=== PATIENT | female | born 1985 | race African-American/Black ===

== ENCOUNTER 2018-11-09 15:04 | Emergency (ER) | payer OTHER ==
[2018-11-09] MEDS ORDERED: NS 0.9% 1000 ML** 2,000 ML IV ONE (15:15)
--- OUTSIDE RECORDS SUMMARY | 2018-11-09 15:17 | XMS REPORT | Continuity of Care Document ---
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 Onset: 2016 Toxic diffuse goiter with no crisis Avi Diaz M.D. Onset: 07/26/2011 Goiter Avi Diaz M.D. Onset: 07/25/2011 Tachycardia Avi Diaz M.D. Onset: 07/25/2011 Benign essential hypertension Avi Diaz M.D. Onset: 07/25/2011 Family History Date Family Member(s) Observation Comments General Family members all A+W Mother Depression Social History Type Date Description Comments Sex Unknown Education Highest level of education completed is 12th grade Living Situation Patient lives alone Diet Diet is healthy and well balanced Sleep Reports difficulty falling asleep Pets There are no pets in the home Occupation [employer] Tobacco Use Start: Unknown Never Smoked Cigarettes ETOH Use Denies alcohol use Tobacco Use Start: Unknown Patient has never smoked Exercise Type/Frequency Walks daily Current Allergies, Adverse Reactions, Alerts Description No Known Drug Allergies Medications Active Medications SIG Qnty Indications Ordering Date Provider Sertraline HCL Take 1 To 2 Tablets 60tabs F43.21 Avi Diaz, 2016 25mg Every Morning For M.D. Tablets Anxiety And Depression Atenolol take 1 tablet by 30tabs I10 Avi Diaz, 11/03/2009 25mg Tablets mouth every day M.D. History Medications Methimazole 1 po tid Or as 60tabs Avi Jasmine 07/26/2011 - 10mg Tablets Directed Bipin Diaz 09/20/2013 Medrol Dosepak use as 1tabs 782.1 Krista Stein, 07/05/2010 - 4mg Tablets directed [facility] 11/12/2010 Note Due To Health Issues Agatah was 782.1 Krista Stein, 07/05/2010 - seen by me [facility] 11/12/2010 today and may not return to work until , 3\\\\11 Multi-Vitamin 1 po qd Unknown - Tablets 11/03/2009 Ortho Patch Unknown - 11/03/2009 Medroxyprogesterone 1 im q 3 months Unknown - Acetate 07/05/2010 150mg/ml Suspension Depo-Provera Contraceptive q 3 months Unknown - 09/20/2013 150mg/ml Suspension Medications Administered in Office Medication SIG Qnty Indications Ordering Provider Date Brief Emotional/Behav Assessment Avi Diaz M.D. 07/04/2016 W/ Scoring Doc Per Standard Inst Injection Vital Signs Date Vital Result Comment 11/09/2018 2:03pm BP Systolic 108 mmHg BP Diastolic 80 mmHg Heart Rate 82 /min Body Temperature 97.5 F Respiratory Rate 16 /min Height 60 inches 5'0" Weight 155.00 lb BMI (Body Mass Index) 30.3 kg/m2 06/04/2018 2:26pm BP Systolic 112 mmHg BP Diastolic 70 mmHg Heart Rate 76 /min Body Temperature 98.7 F Respiratory Rate 16 /min Height 60 inches 5'0" Weight 143.00 lb BMI (Body Mass Index) 27.9 kg/m2 03/31/2017 8:57am BP Systolic 116 mmHg BP Diastolic 84 mmHg Heart Rate 78 /min Body Temperature 98.6 F Respiratory Rate 16 /min Height 60 inches 5'0" Weight 136.00 lb BMI (Body Mass Index) 26.6 kg/m2 09/06/2016 9:27am BP Systolic 116 mmHg BP Diastolic 70 mmHg Heart Rate 72 /min Body Temperature 98.8 F Respiratory Rate 16 /min Height 60 inches 5'0" Weight 128.12 lb BMI (Body Mass Index) 25.0 kg/m2 07/25/2016 1:48pm BP Systolic 128 mmHg BP Diastolic 82 mmHg Heart Rate 76 /min Body Temperature 98.4 F Respiratory Rate 16 /min Height 60 inches 5'0" Weight 133.50 lb BMI (Body Mass Index) 26.1 kg/m2 07/04/2016 1:46pm BP Systolic 144 mmHg BP Diastolic 72 mmHg Heart Rate 84 /min Body Temperature 99.1 F Respiratory Rate 16 /min Weight 135.38 lb 01/01/2016 12:45pm BP Systolic 116 mmHg BP Diastolic 60 mmHg Heart Rate 66 /min Body Temperature 98.4 F Respiratory Rate 16 /min Weight 137.00 lb 06/30/2015 4:20pm BP Systolic 126 mmHg BP Diastolic 74 mmHg Heart Rate 84 /min Body Temperature 98.6 F Respiratory Rate 16 /min Weight 137.00 lb 12/16/2014 4:17pm BP Systolic 126 mmHg BP Diastolic 80 mmHg Heart Rate 72 /min Body Temperature 98.4 F Respiratory Rate 16 /min Weight 138.38 lb 06/02/2014 12:58pm BP Systolic 110 mmHg BP Diastolic 60 mmHg Heart Rate 74 /min Body Temperature 98.7 F Respiratory Rate 14 /min Height 60 inches 5'0" Weight 137.00 lb BMI (Body Mass Index) 26.8 kg/m2 12/02/2013 12:52pm BP Systolic 124 mmHg BP Diastolic 86 mmHg Heart Rate 64 /min Body Temperature 98.2 F Respiratory Rate 16 /min Height 60 inches 5'0" Weight 132.00 lb BMI (Body Mass Index) 25.8 kg/m2 09/20/2013 5:01pm BP Systolic 130 mmHg BP Diastolic 80 mmHg Heart Rate 68 /min Body Temperature 98.0 F Respiratory Rate 18 /min Height 60 inches 5'0" Weight 136.00 lb BMI (Body Mass Index) 26.6 kg/m2 07/29/2011 2:02pm BP Systolic 114 mmHg BP Diastolic 76 mmHg Heart Rate 90 /min Body Temperature 98.3 F Height 60 inches 5'0" Weight 125.00 lb BMI (Body Mass Index) 24.4 kg/m2 07/26/2011 2:06pm BP Systolic 132 mmHg BP Diastolic 82 mmHg Heart Rate 80 /min Respiratory Rate 14 /min Height 60 inches 5'0" Weight 127.00 lb BMI (Body Mass Index) 24.8 kg/m2 07/25/2011 3:34pm BP Systolic 158 mmHg BP Diastolic 90 mmHg Heart Rate 104 /min Height 60 inches 5'0" Weight 127.00 lb BMI (Body Mass Index) 24.8 kg/m2 11/12/2010 11:31am BP Systolic 110 mmHg BP Diastolic 74 mmHg Heart Rate 88 /min Body Temperature 99.0 F Height 60 inches 5'0" Weight 131.00 lb BMI (Body Mass Index) 25.6 kg/m2 07/05/2010 11:00am BP Systolic 100 mmHg BP Diastolic 70 mmHg Heart Rate 88 /min Body Temperature 99.0 F Height 60 inches 5'0" Weight 128.00 lb BMI (Body Mass Index) 25.0 kg/m2 04/26/2010 1:59pm BP Systolic 128 mmHg BP Diastolic 76 mmHg Heart Rate 78 /min Body Temperature 99.2 F Height 60 inches 5'0" Weight 127.00 lb BMI (Body Mass Index) 24.8 kg/m2 01/25/2010 2:07pm BP Systolic 124 mmHg BP Diastolic 80 mmHg Heart Rate 78 /min Body Temperature 99.5 F Height 60 inches 5'0" Weight 123.00 lb BMI (Body Mass Index) 24.0 kg/m2 11/24/2009 1:20pm BP Systolic 132 mmHg BP Diastolic 90 mmHg Heart Rate 84 /min Body Temperature 99.0 F Respiratory Rate 16 /min Height 60 inches 5'0" Weight 126.00 lb BMI (Body Mass Index) 24.6 kg/m2 11/03/2009 2:23pm BP Systolic 140 mmHg BP Diastolic 98 mmHg Heart Rate 106 /min Body Temperature 98.2 F Height 60 inches 5'0" Weight 122.00 lb BMI (Body Mass Index) 23.8 kg/m2 01/16/2009 9:35am BP Systolic 136 mmHg BP Diastolic 90 mmHg Heart Rate 80 /min Respiratory Rate 18 /min Height 60 inches 5'0" Weight 123.00 lb BMI (Body Mass Index) 24.0 kg/m2 Results Test Date Facility Test Result H/L Range Note Ua - Non Micro ([facility]) 11/09/2018 [facility] Appearance clear (607)- - Color yellow Glucose, Urine ([facility]ma/[facility]/CTX) >=1000 # provider aware Bilirubin negative Ketones trace # SP Grav 1.010 Blood negative PH 5.5 Protein negative Urobil 0.2 Nitrite negative Leukocytes (Fma/CMC/Centrex) negative Laboratory test 11/09/2018 [facility] Glucose >600 mg/dL High 70- 105 finding (607)- - Fingerstick (a) Laboratory test 06/04/2018 [facility](a) TSH 0.70 mIU/L 0.50-6.00 finding Free T4 0.93 ng/dL 0.75-1.54 Basic Metabolic Profile 06/04/2018 [facility](a) Sodium 137 mEq/L 134-149 Potassium 4.8 mEq/L 3.6-5.5 Chloride 109 mEq/L 94-112 Carbon Dioxide 24 mEq/L 21-32 Glucose 95 mg/dL 70-105 BUN 13 mg/dL 6-26 Creatinine 0.7 mg/dL 0.6-1.4 BUN/Creat Ratio 18.6 CALC 8.0-36.0 Calcium 9.2 mg/dL 8.6-10.2 GFR Non- >60 ml/min/1.73m^ >=60 GFR >60 ml/min/1.73m^ >=60 Laboratory test finding 03/31/2017 [facility]) TSH 1.07 mIU/L 0.50-6.00 Free T4 0.93 ng/dL 0.75-1.54 Comprehensive Metabolic 07/04/2016 [facility]) Sodium 139 mEq/L 134-149 Prof Potassium 4.4 mEq/L 3.6-5.5 Chloride 108 mEq/L 94-112 Carbon Dioxide 24 mEq/L 21-32 Glucose 120 mg/dL High 70-105 BUN 9 mg/dL 6-26 Creatinine 0.7 mg/dL 0.6-1.4 BUN/Creat Ratio 12.9 CALC 8.0-36.0 Calcium 9.3 mg/dL 8.6-10.2 Total Protein 7.7 g/dL 6.4-8.3 Albumin 4.7 g/dL 3.8-5.5 Globulin 3.0 g/dL 2.0-4.8 A/G Ratio 1.6 CALC 0.6-2.3 Alk. Phosphatase 48 U/L 30-110 Alt (SGPT) 11 U/L 7-35 Ast (Sgot) 14 U/L 5-34 Total Bilirubin 0.3 mg/dL 0.2-1.3 GFR Non- >60 ml/min/1.73m^ >=60 GFR >60 ml/min/1.73m^ >=60 Complete Blood Count 07/04/2016 [facility](a) WBC 4.0 x10^3/UL 3.6 -9.6 RBC 4.54 x10^6/UL 3.90-5.70 HGB 14.3 g/dL 12.1-17.2 HCT 42 % 36-50 MCV 92.0 fL 82.2-97.4 MCH 31.4 pg 27.6-33.3 MCHC 34.3 g/dL 33.0-35.5 RDW 13.0 % 11.6-13.7 PLT 295 x10^3/UL 150-400 MPV 7.0 fL Low 7.4-10.4 Gran # 2.2 x10^3/UL 1.5-7.2 Lymph# 1.6 x10^3/UL 0.7-4.9 [place]# 0.2 x10^3/UL 0.1-0.9 Gran % 55.1 % 42.2-75.2 Lymph % 39.6 % 20.5-51.1 [place]% 5.3 % 1.7-9.3 Laboratory test finding 07/04/2016 [facility](a) TSH 0.48 mIU/L Low 0.50-6.00 1 Free T4 1.12 ng/dL 0.75-1.54 Laboratory test finding 01/01/2016 [facility](fma) TSH 0.41 mIU/L Low 0.50-6.00 2 Free T4 0.99 ng/dL 0.75-1.54 Laboratory test 06/30/2015 [facility](a) Free T4 1.03 ng/dL 0.75- 1.54 finding TSH 0.39 mIU/L Low 0.50-6.00 3 Laboratory test 12/16/2014 [facility](a) Free T4 1.19 ng/dL 0.75- 1.54 finding TSH 0.41 mIU/L Low 0.50-6.00 4 Laboratory test 06/02/2014 Roejlio Lawson(a) Free T4 1.11 ng/dL 0.75- 1.54 finding TSH 0.92 mIU/L 0.50-6.00 Basic Metabolic Profile 06/02/2014 [facility](a) Sodium 134 mEq/L 134-149 Potassium 4.6 mEq/L 3.6-5.5 Chloride 101 mEq/L 94-112 Carbon Dioxide 25 mEq/L 21-32 Glucose 102 mg/dL 70-105 BUN 11 mg/dL 6-26 Creatinine 0.8 mg/dL 0.6-1.4 BUN/Creat Ratio 13.8 CALC 8.0-36.0 Calcium 9.6 mg/dL 8.6-10.2 Laboratory test finding 12/02/2013 [facility] Flora(a) TSH 0.50 mIU/L 0.50-6.00 Free T4 1.10 ng/dL 0.75-1.54 Free T3 2.53 pg/mL 2.00-4.90 Laboratory test finding 08/19/2011 [facility] Thyroxine Free 1.50 ng/dL High 0.61-1.24 T3 Total 2.46 NG/ML High 0.5-1.7 T3 Free 5.38 pg/mL 2.39-6.79 TSH 0.04 MIU/ML Low 0.34-5.60 Laboratory test finding 08/05/2011 [facility] Thyroxine Free 3.19 ng/dL High 0.61-1.24 T3 Total 3.94 NG/ML High 0.5-1.7 T3 Free 10.39 pg/mL High 2.39-6.79 TSH 0.03 MIU/ML Low 0.34-5.60 Thyroperoxidase Antibody 716.1 IU/mL High Less Than 9.0 Thyroid Stimulating Igg 5.1 Abnormal <=1.3 5 Basic Metabolic Profile 07/25/2011 [facility](a) BUN 17 mg/dL 6- 26 Calcium 9.7 mg/dL 8.6-10.2 Chloride 103 mEq/L 94-112 Creatinine 0.6 mg/dL 0.6-1.4 Carbon Dioxide 24 mEq/L 21-32 Glucose 122 mg/dL High 70-105 6 Sodium 139 mEq/L 134-149 Potassium 4.0 mEq/L 3.6-5.5 BUN/Creat Ratio 30.6 Calc 8.0-36.0 Laboratory test 07/25/2011 [facility]) Free T4 > 9.44 ng/dL High 0.75-1.54 finding TSH < 0.01 mIU/L Low 0.50-6.00 CBC Electronic ([facility]) 07/25/2011 [facility] WBC 5.7 3.6-9.6 (607)- - RBC 4.53 3.90-5.70 Hemoglobin (Fma/CMC/CTX) 12.5 g/dL 12.1 - 17.2 Hematocrit (Fma/CMC/CTX) 37.1 % 36.1 - 50.3 Platelets 279 10^3/ul 150-400 Lymph% 45.0 20.5-51.1 Mixed% 8.4 Neutrophils % 46.6 Mean Corpuscular Vol 81.9 Low 82.2-97.4 Mean Corpuscular Hemoglobin 27.6 27.6-33.3 Mean Corpuscular Hemo Concen 33.7 32.0-36.0 RDW 12.7 11.6-13.7 Mean Platelet Volume 11.0 6.5-11.0 Comprehensive Metabolic 11/03/2009 [facility]) Albumin 4.8 g/dL 3.8-5.5 Prof Alk. Phos. 59 U/L 30-110 Alt (SGPT) 33 U/L 7-35 Ast (Sgot) 20 U/L 5-34 BUN 11 mg/dL 6-26 Calcium 10.1 mg/dL 8.6-10.2 Chloride 101 mEq/L 94-112 Creatinine 0.7 mg/dL 0.6-1.4 Carbon Dioxide 23 mEq/L 21-32 Glucose 88 mg/dL 70-105 Sodium 140 mEq/L 134-149 Total Bilirubin 0.5 mg/dL 0.2-1.3 Total Protein 8.1 g/dL 6.3-8.1 Potassium 4.0 mEq/L 3.6-5.5 Globulin 3.3 g/dL 2.0-4.8 A/G Ratio 1.5 Calc 0.6-2.2 BUN/Creat Ratio 15.1 Calc 8.0-36.0 Laboratory test finding 11/03/2009 Rojel[facility] Lulu(a) TSH 1.23 mIU/L 0.50-6.00 Free T4 0.96 ng/dL 0.75-1.54 CBC ([facility]) 11/03/2009 [facility] WBC 5.5 3.6-9.6 (607)- - RBC 4.78 3.90-5.70 Hemoglobin (Fma/CMC/CTX) 14.7 g/dL 12.1 - 17.2 Hematocrit (Fma/CMC/CTX) 42.5 % 36.1 - 50.3 Mean Corpuscular Vol 88.9 82.2-97.4 Mean Corpuscular Hemaglobin 30.8 27.6-33.3 Mean Corpuscular Hemo Concen 34.6 33.0-36.0 Platelets 292 10^3/ul 150-400 Lymph% 32.1 20.5-51.1 Mixed% 6.7 Neutrophils % =61.2 RDW 13.9 High 11.6-13.7 Mean Platelet Volume 9.4 7.4-10.4 Laboratory test finding 01/16/2009 Rojelio Lawson(a) TSH 0.87 mIU/L 0.50-6.00 Free T4 1.27 ng/dL 0.75-1.54 Free T3 3.09 pg/mL 2.00-4.90 1 RESULTS VERIFIED BY REPEAT ANALYSIS 2 RESULTS VERIFIED BY REPEAT ANALYSIS 3 RESULTS VERIFIED BY REPEAT ANALYSIS 4 RESULTS VERIFIED BY REPEAT ANALYSIS 5 INFCE Result Units: TSI index Test Performed by: [facility] D[facility] of Lab Med [facility] Pathology [address] [place] [address] Bingo Usher: Chandler Holley III, M.D. 6 RESULT JOYCELYN'D Procedures Date Code Description Status 07/04/2016 54507 Brief Emotional/Behav Assessment W/ Scoring Doc Per Completed Standard Inst 07/25/2011 52595 Pulse Oximetry Completed 07/25/2011 86959 Electrocardiogram Complete Completed Encounters Type Date Location Provider Dx Diagnosis Office Visit 06/04/2018 Main Office Avi Diaz, I10 Essential (primary ) 2:20p M.D. hypertension F43.21 Adjustment disorder with depressed mood E05.00 Thyrotoxicosis w diffuse goiter w/o thyrotoxic crisis Office Visit 03/31/2017 9:00a Main Office Avi Diaz, I10 Essential ( primary) M.D. 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 with depressed mood I10 Essential (primary) hypertension Office Visit 07/25/2016 2:00p Main Office Avi Diaz, F43.21 Adjustment disorder M.D. 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 242.00 Goiter Toxic Diffuse W/O Thyrotoxic Crisis Or Storm Office Visit 06/02/2014 1:00p Main Office Avi Diaz, 401.1 Hypertension Benign M.D. 242.00 Goiter Toxic Diffuse W/O Thyrotoxic Crisis Or Storm Office Visit 12/02/2013 1:00p Main Office Avi Diaz, 242.00 Goiter Toxic M.D. Diffuse W/O Thyrotoxic Crisis Or Storm 401.1 Hypertension Benign Office Visit 09/20/2013 4:00p Main Office Krista Stein, 401.1 Hypertension Benign FIRE LOOKOUT Office Visit 05/23/2012 9:00a Main Office Yuri Hidalgo 401.1 Hypertension Benign Bipin Valverde Office Visit 07/29/2011 2:10p Main Office Avi Diaz, 242.00 Goiter Toxic M.D. Diffuse W/O Thyrotoxic Crisis Or Storm 401.1 Hypertension Benign 785.0 Tachycardia Unspec Office Visit 07/26/2011 2:10p Main Office Avi Diaz, 242.00 Goiter Toxic M.D. Diffuse W/O Thyrotoxic Crisis Or Storm 401.1 Hypertension Benign 785.0 Tachycardia Unspec Office Visit 07/25/2011 4:00p Main Office Avi Diaz, 401.1 Hypertension Benign M.D. 785.0 Tachycardia Unspec 240.9 Goiter Unspec Office Visit 11/12/2010 11:40a Main Office Avi Diaz, 401.1 Hypertension Benign M.D. Office Visit 07/05/2010 11:15a Main Office Krista Stein, 782.1 Rash & Other Nonspec FIRE LOOKOUT Skin Eruption Office Visit 04/26/2010 1:50p Main Office Avi Diaz, 401.1 Hypertension Benign M.D. Office Visit 01/25/2010 2:00p Main Office Avi Diaz, 401.1 Hypertension Benign M.D. 785.0 Tachycardia Unspec Office Visit 11/24/2009 1:20p Main Office Avi Diaz, 401.1 Hypertension Benign M.D. Office Visit 11/03/2009 2:10p Main Office Avi Diaz, 401.1 Hypertension Benign M.D. 785.0 Tachycardia Unspec Office Visit 01/16/2009 9:30a Main Office Krista Stein FIRE LOOKOUT 240.9 Goiter Unspec Plan of Treatment Future Appointment(s):12/03/2018 9:20 am - Avi Diaz M.D. at Main Rqzvel2111/09/2018 - Elizabeth Lindsay, NPR73.9 Hyperglycemia, unspecifiedComments :Please go to the ED right now for stabilization. Come back in 3 days for a recheck with an MD.R63.1 PolydipsiaAllComments:1. Patient has been queried about patient's goals/preferences and functional/lifestyle goals at relevant visits. If relevant, describe: Has been discussed, noted above2. Treatment goals as explainedto the patient: see above3. Are there barriers to meeting treatment goals? Yes If Yes, please describe: Barriers include possible insurance limits, disease process, and difficulty with lifestyle changes4. Self -Management goals as described to the patient: Yes, see above As always, we strongly encourage a healthy diet and making physical activity a part of your every day life. If you have questions about how or where to start, please contact the office.
[2018-11-09 15:55] LABS: ABS Basophils 0.1 10^3/ul (0-0.2); ABS Eosinophils 0.1 10^3/ul (0-0.6); ABS Monocytes 0.5 10^3/ul (0-0.8); ABS Neutrophils 5.2 10^3/ul (1.5-7.7); Eosinophil % 0.9 %; Hematocrit 44 % (35-47); Hemoglobin 14.7 g/dL (12.0-16.0); Lymphocyte % 25.8 %; Mean Corpuscular HGB Conc 34 g/dL (31-36); Mean Corpuscular Hemoglobin 29 pg (27-31); Mean Corpuscular Volume 87 fL (80-97); Nucleated Red Blood Cells % 0.1; Platelet Count 318 10^3/uL (150-450); Red Blood Count 5.06 10^6 /uL (3.70-4.87); Red Cell Distribution Width 14 % (10-15); White Blood Count 7.8 10^3/uL (3.5-10.8)
[2018-11-09 16:21] LABS: Albumin 4.7 g/dL (3.2-5.2); Albumin/Globulin Ratio 1.2 (1-3); C Reactive Protein 4.64 mg/L (<8.01); Calcium 10.6 mg/dL (8.6-10.3); EGFR African American 86.2 (>60); EGFR Non-African American 71.2 (>60); Globulin 3.9 g/dL (2-4); Magnesium 1.9 mg/dL (1.9-2.7); Potassium 4.6 mmol/L (3.5-5.0); Total Bilirubin 0.4 mg/dL (0.2-1.0); Total Protein 8.6 g/dL (6.4-8.9)
[2018-11-09] MEDS ORDERED: Insulin REGULAR(*) 1 UNITS UNIT IV PUSH ONE ×2 (16:37→18:04)
--- NOTE | 2018-11-09 16:43 | ED ---
HPI Diabetic - HPI Summary HPI Summary: A 33 y/o female accompanied by family presents to [facility] with a chief complaint of high blood glucose measured at 430 today. The patient reports new onset DM. She says for the past few days she has been thirsty and has an increased urinary frequency. She reports a Hx of hyperthyroid and HTN and a FHx of DM on her father's side. She also notes that she has been gaining weight. At triage she rated her pain as a 0/10 in severity. The patient denies any fevers, chills , CP or SOB. - History Of Current Complaint Chief Complaint: EDDiabeticProb Time Seen by Provider: 11/09/18 15:12 Hx Obtained From: Patient, Family/Dealer Support Technician Hx Last Menstrual Period: 03/01/16 Onset/Duration: Sudden Onset, Lasting Days, Still Present Timing: Constant Severity Initially: Mild Severity Currently: Mild Character: Alert Aggravating: Nothing Alleviating: Nothing Associated Signs & Symptoms: Negative - fevers, chills, CP or SOB - Allergies/Home Medications Allergies/Adverse Reactions: Allergies Allergy/AdvReac Type Severity Reaction Status Date / Time No Known Allergies Allergy Verified 11/09/18 15:09 Home Medications: Home Medications Atenolol TAB* [Tenormin TAB* 25 MG] 25 mg PO DAILY 11/09/18 [History Confirmed 11/09/18] Sertraline* [Zoloft*] 25 - 50 mg PO DAILY 11/09/18 [History Confirmed 11/09/18] PMH/Surg Hx/FS Hx/Imm Hx Endocrine/Hematology History: Reports: Hx Diabetes, Hx Thyroid Disease - hyper Cardiovascular History: Reports: Hx Hypertension - on meds Respiratory History: Denies: Hx Asthma, Hx Chronic Obstructive Pulmonary Disease (COPD) GI History: Denies: Hx Ulcer Infectious Disease History: No Infectious Disease History: Denies: Hx Hepatitis, Hx Human Immunodeficiency Virus (HIV), Traveled Outside the [place] in Last 30 Days - Family History Known Family History: Positive: Diabetes - paternal side - Social History Alcohol Use: Occasionally Substance Use Type: Reports: None Smoking Status (MU): Never Smoked Tobacco Review of Systems Positive: Other - positive: thirsty, gaining weight. Negative: Fever, Chills Negative: Chest Pain Negative: Shortness Of Breath Positive: frequency - increased All Other Systems Reviewed And Are Negative: Yes Physical Exam - Summary Physical Exam Summary: VITAL SIGNS: Reviewed. GENERAL: Patient is a well-developed and nourished FEMALE who is lying comfortable in the stretcher. Patient is not in any acute respiratory distress. HEAD AND FACE: No signs of trauma. No ecchymosis, hematomas or skull depressions. No sinus tenderness. EYES: PERRLA, EOMI x 2, No injected conjunctiva, no nystagmus. EARS: Hearing grossly intact. Ear canals and tympanic membranes are within normal limits. MOUTH: Oropharynx within normal limits. NECK: Supple, trachea is midline, no adenopathy, no JVD, no carotid bruit, no c- spine tenderness, neck with full ROM. CHEST: Symmetric, no tenderness at palpation. LUNGS: Clear to auscultation bilaterally. No wheezing or crackles. CVS: Regular rate and rhythm, S1 and S2 present, no murmurs or gallops appreciated. ABDOMEN: Soft, non-tender. No signs of distention. No rebound, no guarding, and no masses palpated. Bowel sounds are normal. EXTREMITIES: FROM in all major joints, no edema, no cyanosis or clubbing. NEURO: Alert and oriented x 3. No acute neurological deficits. Speech is normal and follows commands. SKIN: Dry and warm. Triage Information Reviewed: Yes Vital Signs On Initial Exam: Initial Vitals Temp Pulse Resp BP Pulse Ox 97.4 F 78 16 130/94 99 11/09/18 15:06 11/09/18 15:06 11/09/18 15:06 11/09/18 15:06 11/09/18 15:06 Vital Signs Reviewed: Yes Diagnostics - Vital Signs Vital Signs Temp Pulse Resp BP Pulse Ox 11/09/18 15:06 97.4 F 78 16 130/94 99 - Laboratory Lab Results: Lab Results 11/09/18 11/09/18 11/09/18 Range/Units 15:47 15:47 15:47 WBC 7.8 (3.5-10.8) 10^3/uL RBC 5.06 H (3.70-4.87) 10^6 /uL Hgb 14.7 (12.0-16.0) g/dL Hct 44 (35-47) % MCV 87 (80-97) fL MCH 29 (27-31) pg MCHC 34 (31-36) g/dL RDW 14 (10-15) % Plt Count 318 (150-450) 10^3/uL MPV 8.0 (7.4-10.4) fL Neut % (Auto) 66.5 % Lymph % (Auto) 25.8 % Davis % (Auto) 5.9 % Eos % (Auto) 0.9 % Baso % (Auto) 0.9 % Absolute Neuts (auto) 5.2 (1.5-7.7) 10^3/ul Absolute Lymphs (auto) 2.0 (1.0-4.8) 10^3/ul Absolute Monos (auto) 0.5 (0-0.8) 10^3/ul Absolute Eos (auto) 0.1 (0-0.6) 10^3/ul Absolute Basos (auto) 0.1 (0-0.2) 10^3/ul Absolute Nucleated RBC 0.0 10^3/ul Nucleated RBC % 0.1 VBG pH (7.32-7.43) VBG pCO2 (41-51) mmHg VBG pO2 (35-45) mmHg VBG HCO3 (24-28) mmol/L VBG O2 Saturation (70-80) % VBG Base Excess (0.0-4.0) mmol/L Sodium 132 L (135-145) mmol/L Potassium 4.6 (3.5-5.0) mmol/L Chloride 96 L (101-111) mmol/L Carbon Dioxide 26 (22-32) mmol/L Anion Gap 10 (2-11) mmol/L BUN 23 (6-24) mg/dL Creatinine 0.92 (0.51-0.95) mg/dL Est GFR ( Amer) 86.2 (>60) Est GFR (Non-Af Amer) 71.2 (>60) BUN/Creatinine Ratio 25.0 H (8-20) Glucose 433 H (70-100) mg/dL Lactic Acid 0.8 (0.5-2.0) mmol/L Calcium 10.6 H (8.6-10.3) mg/dL Magnesium 1.9 (1.9-2.7) mg/dL Total Bilirubin 0.40 (0.2-1.0) mg/dL AST 10 L (13-39) U/L ALT 14 (7-52) U/L Alkaline Phosphatase 89 (34-104) U/L Total Creatine Kinase 53 (10-223) U/L C-Reactive Protein 4.64 (<8.01) mg/L Total Protein 8.6 (6.4-8.9) g/dL Albumin 4.7 (3.2-5.2) g/dL Globulin 3.9 (2-4) g/dL Albumin/Globulin Ratio 1.2 (1-3) 11/09/18 Range/Units 15:47 WBC (3.5-10.8) 10^3/uL RBC (3.70-4.87) 10^6 /uL Hgb (12.0-16.0) g/dL Hct (35-47) % MCV (80-97) fL MCH (27-31) pg MCHC (31-36) g/dL RDW (10-15) % Plt Count (150-450) 10^3/uL MPV (7.4-10.4) fL Neut % (Auto) % Lymph % (Auto) % Davis % (Auto) % Eos % (Auto) % Baso % (Auto) % Absolute Neuts (auto) (1.5-7.7) 10^3/ul Absolute Lymphs (auto) (1.0-4.8) 10^3/ul Absolute Monos (auto) (0-0.8) 10^3/ul Absolute Eos (auto) (0-0.6) 10^3/ul Absolute Basos (auto) (0-0.2) 10^3/ul Absolute Nucleated RBC 10^3/ul Nucleated RBC % VBG pH 7.39 (7.32-7.43) VBG pCO2 49 (41-51) mmHg VBG pO2 16.0 L (35-45) mmHg VBG HCO3 25.9 (24-28) mmol/L VBG O2 Saturation < 38.0 L (70-80) % VBG Base Excess 3.7 (0.0-4.0) mmol/L Sodium (135-145) mmol/L Potassium (3.5-5.0) mmol/L Chloride (101-111) mmol/L Carbon Dioxide (22-32) mmol/L Anion Gap (2-11) mmol/L BUN (6-24) mg/dL Creatinine (0.51-0.95) mg/dL Est GFR ( Amer) (>60) Est GFR (Non-Af Amer) (>60) BUN/Creatinine Ratio (8-20) Glucose (70-100) mg/dL Lactic Acid (0.5-2.0) mmol/L Calcium (8.6-10.3) mg/dL Magnesium (1.9-2.7) mg/dL Total Bilirubin (0.2-1.0) mg/dL AST (13-39) U/L ALT (7-52) U/L Alkaline Phosphatase (34-104) U/L Total Creatine Kinase (10-223) U/L C-Reactive Protein (<8.01) mg/L Total Protein (6.4-8.9) g/dL Albumin (3.2-5.2) g/dL Globulin (2-4) g/dL Albumin/Globulin Ratio (1-3) Result Diagrams: 11/09/18 15:47 11/09/18 15:47 Lab Statement: Any lab studies that have been ordered have been reviewed, and results considered in the medical decision making process. Diabetic Course/Dx - Course Assessment/Plan: A 33 y/o female accompanied by family presents to [facility] with a chief complaint of high blood glucose measured at 430 today. The patient reports new onset DM. She says for the past few days she has been thirsty and has an increased urinary frequency. She reports a Hx of hyperthyroid and HTN and a FHx of DM on her father's side. She also notes that she has been gaining weight. At triage she rated her pain as a 0/10 in severity. The patient denies any fevers, chills, CP or SOB. Blood work without any significant abnormality except for side of 132, crying 96, glucose 433, consistent 10.6, AST is 10. VBG has a pH of 7.39 which is normal. Patient was given 2 L of IV fluids and insulin. Finger stick is 164. Therefore the patient will be discharged home with follow-up with PCP. Patient was given a prescription for metformin, glucometer, lancets and strips. Patient is hemodynamically stable. - Diagnoses Provider Diagnoses: Diabetes mellitus, new onset, New onset type 2 diabetes mellitus Discharge - Sign-Out/Discharge Documenting (check all that apply): Patient Departure - DC Patient Received Moderate/Deep Sedation with Procedure: No - Discharge Plan Condition: Stable Disposition: HOME Prescriptions: Blood-Glucose Meter [Freestyle Lite Meter] 1 each MC DAILY #1 kit Lancets [Freestyle Lancets] 1 each MC DAILY #30 each Lancets/Blood Glucose Strips [Fora [id number] Strp-Lnct] 1 kit XX DAILY #1 kit metFORMIN* [Glucophage 500 MG TAB *] 500 mg PO BID #30 tab Patient Education Materials: Type 2 Diabetes in Adults: New Diagnosis (ED) Referrals: Avi Diaz MD [Primary Care Provider] - (2-3 days) Additional Instructions: FOLLOW UP WITH YOUR PRIMARY CARE PROVIDER WITHIN 2-3 DAYS. RETURN TO THE ED FOR ANY WORSENING OR NEW SYMPTOMS. - Billing Disposition and Condition Condition: STABLE Disposition: Home - Attestation Statements Document Initiated by Jennaibe: Yes Documenting Scribe: Sumit Nunez Provider For Whom Scribe is Documenting (Include Credential): Matt Myles MD Scribe Attestation: Sumit Cox scribed for Matt Myles MD on 11/10/18 at 1050. Scribe Documentation Reviewed: Yes Provider Attestation: The documentation as recorded by the Sumit brown accurately reflects the service I personally performed and the decisions made by Matt jasso MD Status of Scribe Document: Viewed
[2018-11-09 17:12] LABS: TSH (Thyroid Stimulating Horm) 0.89 mcIU/mL (0.34-5.60)
[2018-11-09 18:57] VITALS: BP 121/88
== END 2018-11-09 18:57 | disposition home or self-care (01) ==
LOC: ED 15:04
DX: E11.9 Type 2 diabetes mellitus without complications (principal); I10 Essential (primary) hypertension; Z83.3 Family history of diabetes mellitus
CPT/HCPCS: 36415; 80053; 82550; 82803; 83605; 83735; 84443; 85025; 86140; 96361; 96374; 99284